=== PATIENT | male | born 1975 | race Hispanic/Latino ===

== ENCOUNTER 2016-08-25 21:30 | Emergency (ER) | payer OTHER ==
[2016-08-25 21:47] VITALS: BP 153/96; PULSE 102; RESP 16; TEMP 98.2; O2SAT 100
[2016-08-25 22:47] VITALS: BMI 31.4
--- NOTE | 2016-08-25 22:53 | ED PDOC ---
HPI: Back Time Seen by Provider: 08/25/16 22:51 Chief Complaint (Nursing): Back Pain Chief Complaint (Provider): back pain History Per: Patient (41 y/o male here with back pain radiating to left leg/ thigh. Patient states he has h/o back pain intermittently in past for which he usually medicates with advil. Patient has had worsening pain after physical therapy session . TOok advil 4 tabs at 8:30pm today. Denies any urinary or rectal incontinence. Denies any h/o substance abuse/ iv drug use.) Past Medical History Reviewed: Historical Data, Nursing Documentation, Vital Signs Vital Signs: Last Vital Signs Temp 98.2 F 08/25/16 21:38 Pulse 102 H 08/25/16 21:38 Resp 16 08/25/16 21:38 BP 153/96 H 08/25/16 21:38 Pulse Ox 100 08/25/16 21:38 - Family History Family History: States: No Known Family Hx - Home Medications Home Medications: Ambulatory Orders Medication Instructions Recorded diaZEpam [Valium] 5 mg PO Q6 PRN #5 tab 08/25/16 Naproxen [Naprosyn Tab] 1 tab PO Q8 PRN #21 tab 08/26/16 oxyCODONE/Acetaminophen [Percocet 1 ea PO Q6 PRN #5 tab 08/26/16 5/325 mg Tab] - Allergies Allergies/Adverse Reactions: Allergies Allergy/AdvReac Type Severity Reaction Status Date / Time No Known Allergies Allergy Verified 08/25/16 22:46 Review of Systems ROS Statement: Except As Marked, All Systems Reviewed And Found Negative Musculoskeletal: Positive for: Back Pain Physical Exam - Reviewed Nursing Documentation Reviewed: Yes Vital Signs Reviewed: Yes - Physical Exam Appears: Positive for: Well, Non-toxic, No Acute Distress Head Exam: Positive for: ATRAUMATIC, NORMAL INSPECTION, NORMOCEPHALIC Skin: Positive for: Normal Color, Warm, DRY Eye Exam: Positive for: EOMI, Normal appearance, PERRL ENT: Positive for: Normal ENT Inspection Neck: Positive for: Normal, Painless ROM Cardiovascular/Chest: Positive for: Regular Rate, Rhythm Respiratory: Positive for: CNT, Normal Breath Sounds Gastrointestinal/Abdominal: Positive for: Normal Exam, Bowel Sounds, Soft Back: Positive for: Normal Inspection Extremity: Positive for: Normal ROM Neurologic/Psych: Positive for: Alert, Oriented, Other (5/5 lower extremity strength dorsoflexion/plantarflexion; sensation wnl) - ECG O2 Sat by Pulse Oximetry: 100 - Progress ED Course And Treament: [facility] reviewed. No record noted. MOrphine 4 mg IM x 1 dose Disposition - Clinical Impression Clinical Impression: Back pain - Patient ED Disposition Is Patient to be Admitted: No - Disposition Referrals: [facility] [place] [Outside] Disposition: Routine/Home Disposition Time: 22:54 Condition: FAIR Prescriptions: Naproxen [Naprosyn Tab] 1 tab PO Q8 PRN #21 tab PRN Reason: Pain, Moderate (4-7) oxyCODONE/Acetaminophen [Percocet 5/325 mg Tab] 1 ea PO Q6 PRN #5 tab PRN Reason: Pain, Severe (8-10) diaZEpam [Valium] 5 mg PO Q6 PRN #5 tab PRN Reason: Muscle Spasm Instructions: Back Pain (ED) Forms: [facility] ED School/Work Excuse
== END 2016-08-26 00:33 | disposition home or self-care (01) ==
LOC: H.ER 21:30
DX: M54.9 Dorsalgia, unspecified (principal)

== ENCOUNTER 2018-01-14 00:34 | Emergency (ER) | payer BC, OTHER ==
[2018-01-14 00:34] VITALS: BMI 31.4
[2018-01-14] MEDS ORDERED: Sodium Chloride 0.9% 1,000 ML IV STA (01:13)
[2018-01-14 01:46] VITALS: TEMP 99.9
[2018-01-14 01:49] LABS: BASO % 0.1 % (0.0-2.0); EOS % 0.2 % (0.0-4.0); HEMOGLOBIN 15.6 g/dL (12.0-18.0); LYMPH # 0.4 K/uL (1.0-4.3); LYMPH % 3.3 % (20.0-40.0); MEAN CORPUSCULAR HEMOGLOBIN 32.2 pg (27.0-31.0); MONO # 0.4 K/uL (0.0-0.8); MONO % 2.9 % (0.0-10.0); NEUT # 12.3 K/uL (1.8-7.0); NEUT % 93.5 % (50.0-75.0); PLATELET COUNT 128 K/uL (130-400); RBC 4.84 Mil/uL (4.40-5.90); RED CELL DISTRIBUTION WIDTH 12.4 % (11.5-14.5); WHITE BLOOD COUNT 13.2 K/uL (4.8-10.8)
[2018-01-14 01:56] LABS: VENOUS BLOOD GAS PCO2 49 mmHg (40-60); VENOUS BLOOD GAS PO2 33 mm/Hg (30-55); VENOUS BLOOD PH 7.38 (7.32-7.43)
[2018-01-14 02:00] LABS: ALB/GLOB RATIO 1.6 (1.0-2.1); ALBUMIN 3.9 g/dL (3.5-5.0); ALT/SGPT 45 U/L (21-72); AST/SGOT 33 U/L (17-59); BLOOD UREA NITROGEN 15 mg/dl (9-20); CALCIUM 8.6 mg/dL (8.4-10.2); GFR AFRICAN-AMERICAN > 60; GFR NON-AFRICAN AMERICAN > 60; LIPASE 39 U/L (23-300)
--- NOTE | 2018-01-14 02:08 | ED PDOC ---
HPI:Nausea, Vomiting, Diarrhea Time Seen by Provider: 01/14/18 00:37 Chief Complaint (Nursing): GI Problem Chief Complaint (Provider): GI Problem History Per: Patient History/Exam Limitations: no limitations Onset/Duration Of Symptoms: Days (x 2) Current Symptoms Are (Timing): Still Present Quality Of Discomfort: Cramping Associated Symptoms: Fever, Chills, Nausea, Diarrhea Additional Complaint(s): 43 year old male presents to the ED with diarrhea, fever, chills, nausea and cramping abdominal discomfort for the last 2 days. Patient reports nausea is associated with watery diarrhea. He also feels dry and dehydrated although he has been drinking water. 2 days ago he ate cooked chicken stew and believes it might have something to do with that. Took both Tylenol and anti-diarrheal medication from [place]. Denies vomiting, recent travel and antibiotic use. PMD: Dr. Canchola Past Medical History Reviewed: Historical Data, Nursing Documentation, Vital Signs Vital Signs: Last Vital Signs Temp 103 F H 01/14/18 00:38 Pulse 113 H 01/14/18 00:38 Resp 18 01/14/18 00:38 BP 115/70 01/14/18 00:38 Pulse Ox 95 01/14/18 00:38 - Medical History PMH: No Chronic Diseases - Surgical History Surgical History: No Surg Hx - Family History Family History: States: Unknown Family Hx - Social History Ex-Smoker (has not smoked in the last 12 months): No Alcohol: None Drugs: Denies - Home Medications Home Medications: Ambulatory Orders Medication Instructions Recorded diaZEpam [Valium] 5 mg PO Q6 PRN #5 tab 08/25/16 Naproxen [Naprosyn Tab] 1 tab PO Q8 PRN #21 tab 08/26/16 oxyCODONE/Acetaminophen [Percocet 1 ea PO Q6 PRN #5 tab 08/26/16 5/325 mg Tab] Ciprofloxacin HCl [Cipro] 500 mg PO BID #14 tablet 01/14/18 Dicyclomine [Bentyl] 10 mg PO TID #15 cap 01/14/18 Ondansetron ODT [Zofran ODT] 4 mg PO Q8 PRN #12 odt 01/14/18 - Allergies Allergies/Adverse Reactions: Allergies Allergy/AdvReac Type Severity Reaction Status Date / Time No Known Allergies Allergy Verified 08/25/16 22:46 Review of Systems ROS Statement: Except As Marked, All Systems Reviewed And Found Negative Constitutional: Positive for: Fever, Chills Gastrointestinal: Positive for: Nausea, Abdominal Pain (discomfort), Diarrhea. Negative for: Vomiting Physical Exam - Reviewed Nursing Documentation Reviewed: Yes Vital Signs Reviewed: Yes - Physical Exam Appears: Positive for: Non-toxic, No Acute Distress Head Exam: Positive for: ATRAUMATIC, NORMAL INSPECTION, NORMOCEPHALIC Skin: Positive for: Normal Color, Warm, Dry Eye Exam: Positive for: Normal appearance, EOMI, PERRL Neck: Positive for: Normal, Painless ROM, Supple Cardiovascular/Chest: Positive for: Tachycardia (regular rhythm) Respiratory: Positive for: Normal Breath Sounds. Negative for: Respiratory Distress Gastrointestinal/Abdominal: Positive for: Normal Exam, Soft. Negative for: Tenderness Extremity: Positive for: Normal ROM. Negative for: Deformity Neurologic/Psych: Positive for: Alert, Oriented (x 3). Negative for: Motor/ Sensory Deficits - Laboratory Results Result Diagrams: 01/14/18 01:47 01/14/18 01:47 - ECG O2 Sat by Pulse Oximetry: 95 (RA) Pulse Ox Interpretation: Normal - Progress Re-evaluation Time: 03:50 Condition: Re-examined, Improved Medical Decision Making Medical Decision Makin:12 Impression:diarrhea and fever Differential diagnoses include but are not limited to: acute bacterial gastroenteritis, colitis, dehydration; r/o sepsis Initial Plan: --VBG --CT Abd & Pelvis IV Contrast --CMP --Lipase --urine dip --CBC --NS IV --toradol 30 mg IVP --Tylenol 650 mg PO --Zofran Inj 4 mg IVP --Blood cx 03:51 CT Abd & Pelvis FINDINGS: Lower thorax: Mild dependent atelectatic changes in the lungs. ABDOMEN: Liver: Normal. No mass. Gallbladder and bile ducts: Trace probable pericholecystic fluid. Pancreas: Normal. No ductal dilation. Spleen: Normal. No splenomegaly. Adrenals: Normal. No mass. Kidneys and ureters: Normal. No hydronephrosis. Stomach and bowel: A few prominent loops of distal small bowel with questionable wall thickening as can be seen with enteritis. Appendix: Normal appendix. PELVIS: Bladder: Unremarkable as visualized. Reproductive: Unremarkable as visualized. ABDOMEN and PELVIS: Intraperitoneal space: Normal. No free air. No significant fluid collection. Bones/joints: Degenerative changes of the osseous structures. Soft tissues: Unremarkable. Vasculature: Normal. No abdominal aortic aneurysm. Lymph nodes: Normal. No enlarged lymph nodes. IMPRESSION: A few prominent loops of distal small bowel with questionable wall thickening as can be seen with enteritis. Scribe Attestation: Documented by Taylor Larson, acting as a scribe for Pallavi Monson MD Provider Scribe Attestation: All medical record entries made by the Scribe were at my direction and personally dictated by me. I have reviewed the chart and agree that the record accurately reflects my personal performance of the history, physical exam, medical decision making, and the department course for this patient. I have also personally directed, reviewed, and agree with the discharge instructions and disposition. Disposition - Clinical Impression Clinical Impression: Gastroenteritis - Patient ED Disposition Is Patient to be Admitted: No Doctor Will See Patient In The: Office Counseled Patient/Family Regarding: Studies Performed, Diagnosis, Need For Followup - Disposition Disposition: Routine/Home Disposition Time: 03:56 Condition: GOOD Additional Instructions: Take your medications as instructed. Follow up with your PCP in 2-3 days. Prescriptions: Ciprofloxacin HCl [Cipro] 500 mg PO BID #14 tablet Dicyclomine [Bentyl] 10 mg PO TID #15 cap Ondansetron ODT [Zofran ODT] 4 mg PO Q8 PRN #12 odt PRN Reason: Nausea/Vomiting Instructions: Diarrhea in Adolescents and Adults
[2018-01-14] MEDS ORDERED: Sodium Chloride 0.9% 50 ML IV ONE (02:27)
[2018-01-14] MEDS ORDERED: Iohexol 300 100 ML IJ ONE (02:27)
[2018-01-14 03:36] LABS: BANDS 1 % (0-2); LYMPHOCYTE 8 % (20-50); MONOCYTE 3 % (0-10); NEUTROPHIL 88 % (42-75); PLATELET ESTIMATE DECREASED (NORMAL); TOTAL CELLS COUNTED 100
[2018-01-14 04:57] VITALS: BP 120/62; PULSE 80; RESP 16
--- NOTE | 2018-01-14 11:45 | CT ---
Date of service: 01/14/2018 PROCEDURE: CT scan abdomen pelvis. HISTORY: Diarrhea, fever, abdominal pain COMPARISON: No prior study available TECHNIQUE: Contiguous axial images of the abdomen and pelvis performed following intravenous injection of approximately 95 cc Omnipaque 300 contrast material. Additional 2D sagittal and coronal reformats generated. Radiation dose: Total exam DLP = 499.28 mGy-cm. This CT exam was performed using one or more of the following dose reduction techniques: Automated exposure control, adjustment of the mA and/or kV according to patient size, and/or use of iterative reconstruction technique. FINDINGS: LOWER THORAX: Heart size normal. Small hiatal hernia. Mild passive/dependent type atelectasis both posterior lower lung morse. LIVER: Liver upper limits of normal in size measuring nearly 18 cm in CC dimension. Minimal diffuse fatty hepatic infiltration felt be present. There is a small approximately 5.5 mm elliptical shaped low-attenuation focus superior aspect right lobe liver that is too small characterize. Follow-up at interval could be performed to assess stability. Portal and splenic veins are opacified. GALLBLADDER AND BILE DUCTS: Gallbladder incompletely distended likely due to nonfasting state. Incomplete distension presumably accounts of for thick-walled appearance as well however the possibility of cholecystitis not excluded. No intraluminal gallbladder calculi. PANCREAS: The pancreas appears grossly unremarkable SPLEEN: Unremarkable. No splenomegaly. ADRENALS: There are no adrenal lesions. KIDNEYS AND URETERS: Kidneys demonstrate symmetric nephrograms. No evidence of nephrolithiasis or hydronephrosis. BLADDER: Urinary bladder incompletely distended which presumably accounts slight thick-walled appearance. Muscular hypertrophy may contribute. Correlation urinalysis to exclude UTI. REPRODUCTIVE: Unremarkable. APPENDIX: No evidence of acute appendicitis BOWEL: Evaluation of the bowel is somewhat limited due to the lack of oral contrast material. The stomach is partially distended with food debris liquid and air. Incomplete distension presumably accounts for slight thick-walled appearance. Rule out gastritis. There are multiple loops of small bowel that exhibit minimal wall thickening; rule out enteritis. PERITONEUM: Unremarkable. No fluid collection. No free air. Small fat containing umbilical and bilateral inguinal hernias. LYMPH NODES: Unremarkable. No enlarged lymph nodes. VASCULATURE: Unremarkable. No aortic aneurysm. BONES: Mild degenerative spondylosis lumbar spine. OTHER FINDINGS: None. IMPRESSION: Findings suggest mild small-bowel enteritis. Clinical correlation recommended. Borderline hepatomegaly. Mild fatty hepatic infiltration. Tiny nonspecific low-attenuation focus right lobe liver too small to characterize. Followup interval could be performed to assess stability Gallbladder incompletely distended likely due to nonfasting state. Incomplete distension presumably accounts of for thick-walled appearance as well however the possibility of cholecystitis not excluded. No intraluminal gallbladder calculi.
[2018-01-14 21:10] VITALS: O2SAT 95
== END 2018-01-14 04:20 | disposition home or self-care (01) ==
LOC: H.ER 00:34
DX: K52.9 Noninfective gastroenteritis and colitis, unspecified (principal); Z87.891 Personal history of nicotine dependence
CPT/HCPCS: 74177; 80053; 82803; 82948; 83690; 85025; 87040; 96374; 96375; 99283; J1885; J2405; J7030; Q9967